=== PATIENT | female | born 1980 | race Hispanic/Latino ===

== ENCOUNTER 2018-03-17 15:00 | Emergency (ER) | payer SELFPAY ==
[2018-03-17] MEDS ORDERED: ASPIRIN PO ONE (15:51)
--- NOTE | 2018-03-17 15:58 | Emergency Department Report ---
Sydni Doc - Documentation Documentation: Patient is a 37-year-old female who is presenting with chest discomfort shortness of breath. Patient states that about 2 hours ago she was at work and felt strange sensation in the chest to his she was having some difficulty with breathing and felt as though she was maybe going to have a panic attack. Patient states that there was some radiation of some discomfort and tingling into the left hand. Patient states she felt very flushed. Patient went to [facility] and took her blood pressure slightly elevated remained elevated at this time. Patient states that she's had several panic attacks and this is not similar. EKG was taken and show that the patient has septal Q waves present. There is no EKG for comparison. Patient will be moved to the main for a cardiac workup. With the patient the patient states that she does have several family members that because of cardiac issues in her own father in his early 50s from heart attack
[2018-03-17 16:55] LABS: Basophils % (Auto) 0.6 % (0.0-1.8); Eosinophils # (Auto) 0.1 K/mm3 (0.0-0.4); Hematocrit 32.5 % (30.3-42.9); Hemoglobin 11.1 gm/dl (10.1-14.3); Lymphocytes # (Auto) 2.5 K/mm3 (1.2-5.4); Lymphocytes % (Auto) 33.2 % (13.4-35.0); Mean Corpuscular HGB Conc 34 % (30-34); Mean Corpuscular Hemoglobin 27 pg (28-32); Mean Corpuscular Volume 80 fl (79-97); Monocytes # (Auto) 0.7 K/mm3 (0.0-0.8); Monocytes % (Auto) 9.5 % (0.0-7.3); Platelet Count 232 K/mm3 (140-440); Red Blood Count 4.07 M/mm3 (3.65-5.03); Red Cell Distribution Width 15.3 % (13.2-15.2)
[2018-03-17 17:13] LABS: BUN/Creatinine Ratio 17; Blood Urea Nitrogen 12 mg/dL (7-17); Calcium 8.9 mg/dL (8.4-10.2); Hemolysis Index 4
[2018-03-17] MEDS ORDERED: NITROSTAT SL PRN (17:16)
[2018-03-17 17:47] LABS: Amphetamine Screen,Urine PRESUMPTIVE NEGATIVE; Benzodiazepines Screen,Urine PRESUMPTIVE NEGATIVE; Cannabinoid Screen,Urine PRESUMPTIVE NEGATIVE; Cocaine Screen,Urine PRESUMPTIVE NEGATIVE; Methadone Screen,Urine PRESUMPTIVE NEGATIVE; Opiate Screen,Urine PRESUMPTIVE NEGATIVE
--- NOTE | 2018-03-17 18:12 | XRay Report ---
FINAL REPORT PROCEDURE: XR CHEST ROUTINE 2V TECHNIQUE: PA and lateral chest radiographs were obtained. CPT 88001 HISTORY: Chest Pain COMPARISON: No prior studies are available for comparison. FINDINGS: Heart: Normal. Mediastinum/Vessels: Normal. Lungs/Pleural space: No infiltrate, effusion, or pneumothorax. Bony thorax: No acute osseous abnormality. Other: IMPRESSION: No radiographic evidence of acute abnormality.
--- NOTE | 2018-03-17 18:38 | Emergency Department Report ---
ED Shortness of Breath HPI - General Chief Complaint: Dyspnea/Respdistress Stated Complaint: DIFFICULTY BREATHING Time Seen by Provider: 03/17/18 15:20 Source: patient Mode of arrival: Ambulatory Limitations: No Limitations - History of Present Illness Initial Comments: A couple hours prior to arrival, patient had shortness of breath and left- sided chest pain that was associated with left arm tingling. Symptoms are intermittent, exertional, and pleuritic. Patient is not on control. No history of DVT/PE. She smokes approximately one pack per week. Social drinker. Her dad had his first [facility] at the age of 50. Patient thought that she was having an anxiety attack, but the chest pain and arm tingling were different. She has never had any cardiac evaluation. - Related Data Previous Rx's Medication Instructions Recorded Last Taken Type traMADol [Ultram] 50 mg PO Q4HR PRN #15 tablet 10/09/13 Unknown Rx Nitrofurantoin [place]/M-Cryst 100 mg PO BID #14 capsule 06/12/14 Unknown Rx [Macrobid] Promethazine [Phenergan] 25 mg PO Q6H PRN #10 tablet 06/12/14 Unknown Rx Allergies Allergy/AdvReac Type Severity Reaction Status Date / Time sulfamethoxazole Allergy Rash Verified 03/17/18 15:05 [From Bactrim] trimethoprim [From Bactrim] Allergy Rash Verified 03/17/18 15:05 diphenhydramine HCl AdvReac Unknown Verified 06/12/14 19:38 [From Benadryl] ED Review of Systems ROS: Stated complaint: DIFFICULTY BREATHING Other details as noted in HPI Comment: All other systems reviewed and negative Respiratory: shortness of breath Cardiovascular: chest pain, palpitations ED Past Medical Hx - Past Medical History Hx Psychiatric Treatment: Yes (anxiety) - Surgical History Past Surgical History?: Yes Additional Surgical History: c section x 2 - Social History Smoking Status: Current Every Day Smoker Substance Use Type: Alcohol - Medications Home Medications: Home Medications Medication Instructions Recorded Confirmed Last Taken Type traMADol [Ultram] 50 mg PO Q4HR PRN #15 tablet 10/09/13 Unknown Rx Nitrofurantoin [place]/M-Cryst 100 mg PO BID #14 capsule 06/12/14 Unknown Rx [Macrobid] Promethazine [Phenergan] 25 mg PO Q6H PRN #10 tablet 06/12/14 Unknown Rx ED Physical Exam - General Limitations: No Limitations General appearance: alert, in no apparent distress - Head Head exam: Present: atraumatic, normocephalic - Eye Eye exam: Present: normal appearance - ENT ENT exam: Present: mucous membranes moist - Neck Neck exam: Present: normal inspection - Respiratory Respiratory exam: Present: normal lung sounds bilaterally. Absent: respiratory distress - Cardiovascular Cardiovascular Exam: Present: regular rate, normal rhythm, other (no edema). Absent: systolic murmur, diastolic murmur, rubs, gallop, JVD - GI/Abdominal GI/Abdominal exam: Present: soft, normal bowel sounds - Extremities Exam Extremities exam: Present: normal inspection - Back Exam Back exam: Present: normal inspection - Neurological Exam Neurological exam: Present: alert, oriented X3 - Psychiatric Psychiatric exam: Present: normal affect, normal mood - Skin Skin exam: Present: warm, dry, intact, normal color. Absent: rash ED Course Vital Signs 03/17/18 03/17/18 03/17/18 15:05 15:56 16:00 Temperature 97.7 F Pulse Rate 96 H 72 Respiratory 19 19 Rate Blood Pressure 144/84 133/88 O2 Sat by Pulse 100 100 100 Oximetry 03/17/18 03/17/18 03/17/18 16:16 16:30 16:46 Temperature Pulse Rate 69 66 60 Respiratory 14 20 15 Rate Blood Pressure 140/86 149/84 151/98 O2 Sat by Pulse 100 100 100 Oximetry 03/17/18 03/17/18 03/17/18 17:00 17:52 18:00 Temperature Pulse Rate 62 60 61 Respiratory 18 8 L 15 Rate Blood Pressure 151/87 151/87 151/87 O2 Sat by Pulse 100 98 99 Oximetry 03/17/18 03/17/18 03/17/18 18:16 18:30 18:46 Temperature Pulse Rate 87 70 75 Respiratory 15 11 L 21 Rate Blood Pressure 151/87 151/87 124/81 O2 Sat by Pulse 100 98 99 Oximetry 03/17/18 03/17/18 03/17/18 19:00 19:28 19:31 Temperature Pulse Rate 78 78 76 Respiratory 16 21 21 Rate Blood Pressure 124/71 151/87 O2 Sat by Pulse 98 98 99 Oximetry 07/09/18 07/09/18 07/09/18 19:45 20:01 20:15 Temperature Pulse Rate 71 74 74 Respiratory 15 22 25 H Rate Blood Pressure 129/80 129/80 129/80 O2 Sat by Pulse 98 99 99 Oximetry ED Medical Decision Making - Lab Data Result diagrams: 03/17/18 16:15 03/17/18 16:15 - EKG Data -: EKG Interpreted by Me EKG shows normal: sinus rhythm, axis, intervals, ST-T waves Rate: normal - EKG Data When compared to previous EKG there are: previous EKG unavailable Interpretation: other (q waves noted in V1-2) - Radiology Data Radiology results: report reviewed, image reviewed - Medical Decision Making 37-year-old female with past medical history of anxiety presents to the ER with chest pain, shortness of breath. Vital signs are stable. Patient is well- appearing. EKG is significant for Q waves in leads V1 through V2. No prior for comparison. No acute ST changes. Initial lab work is unremarkable, including troponin. Patient has a heart score of 3. Chest x-ray is unremarkable. Patient will receive a three-hour delta troponin as part of the heart pathway. If it is negative, patient will be discharged with outpatient follow-up for likely cardiac stress test. 2049: Repeat troponin is negative. Patient is a symptomatically without any medical interventions. She feels comfortable following up with her family doctor for a possible cardiac stress test and further evaluation of her V1-2 q- waves. Patient is clear for discharge. - Differential Diagnosis ACS, arrhythmia, PE, pneumonia, pneumothorax, GERD, pericarditis Critical care attestation.: If time is entered above; I have spent that time in minutes in the direct care of this critically ill patient, excluding procedure time. ED Disposition Clinical Impression: Chest pain Disposition: DC-01 TO HOME OR SELFCARE Is pt being admited?: No Does the pt Need Aspirin: No Condition: Stable Instructions: Chest Pain (ED) Additional Instructions: Please follow up with your family doctor for likely cardiac stress test for your chest pain and q waves seen on your EKG. Referrals: PRIMARY CARE, [Primary Care Provider] - 3-5 Days
[2018-03-17] MEDS ORDERED: K-DUR PO ONE (19:16)
[2018-03-17 20:33] VITALS: BP 129/80
== END 2018-03-17 21:34 | disposition home or self-care (01) ==
LOC: ED 15:00
DX: R07.89 Other chest pain (principal); R06.02 Shortness of breath; R20.2 Paresthesia of skin; F41.9 Anxiety disorder, unspecified; F17.200 Nicotine dependence, unspecified, uncomplicated; Z88.2 Allergy status to sulfonamides; Z88.8 Allergy status to other drugs, medicaments and biological substances
CPT/HCPCS: 36415; 71046; 80048; 80307; 84484; 84703; 85025; 93005; 93010